=== PATIENT | female | born 1990 | race Caucasian/White ===

== ENCOUNTER 2017-05-13 08:04 | Inpatient (IN) | payer BC ==
[~2017-05-13] VITALS: Ht 162.6 cm; Wt 78.8 kg
--- NOTE | ~2017-05-13 | OR ---
PATIENT'S NAME: IMANI MOURA [facility] AGE: 27 Y [address] ROOM: [place] [address] LOCATION: GOBS ADMIT DATE: 05/13/2017 OR/Procedure Report DISCHARGE DATE: FAMILY PHYSICIAN: Sergey Ann MD ATTENDING PHYSICIAN: Erika Carlton SURGEON: Erika Carlton MD MONORAIL CRANE OPERATOR: DATE OF PROCEDURE: 05/13/2017 This is a 27-year-old 2, para 1-0-0-1, who presents at 40 weeks gestation for labor induction. She is 2 cm, 50%, -2 station, posterior. Cytotec 25 mcg was placed followed by Pitocin 4 hours later. Pitocin reached a maximum of 11 milliunits per minute. She reached 3 cm dilation and had 1 dose of IV fentanyl and then a labor epidural. heart tones were reassuring throughout. She progressed on to complete quickly and pushed just through 2 contractions. She delivered in the EMELIA position. Shoulders and body are easily delivered. Baby girl was placed on maternal abdomen. Baby girl weighs 9 pounds and 5 ounces. Her cord was doubly clamped and cut. A three-vessel cord was noted. Placenta was delivered spontaneously intact. Cervix and vagina are intact. Perineum and periurethral regions are intact. Mother and daughter are doing well in recovery. She is Rh negative. MD DANIEL NOVOAP/dontael /[id number] d: 05/14/17 0007 t: 05/16/17 0139, OPERATIVE SUMMARY
[~2017-05-13 08:04] MED LIST: FERROUS SULFATE PO; PRENATAL 1+1)(P1 TAB PO; TYLENOL EXTRA500 MG PO
[2017-05-13 09:32] LABS: BASOPHIL % 0.2 %; EOSINOPHIL # 0.1 K/uL (0.0-0.5); EOSINOPHIL % 0.6 %; HEMATOCRIT 35.6 % (33.0-46.0); HEMOGLOBIN 12.5 g/dL (11.0-15.0); IMMATURE GRANULOCYTE # 0.2 K/uL (0.0-0.3); IMMATURE GRANULOCYTE % 1.2 %; LYMPHOCYTE # 2.6 K/uL (0.8-4.0); MCH 31.2 pg (27.0-34.0); MCHC 35.1 gm/dL (32.0-36.5); MCV 88.8 fl (83.0-98.0); MONOCYTE # 1.1 K/uL (0.0-1.0); MPV 11.9 fl (9.4-12.4); NEUTROPHIL # (ANC) 9.8 K/uL (1.8-7.8); NRBC % 0 /100WBC (0-0.00); PLATELET COUNT 207 K/uL (150-450); RBC 4.01 M/uL (3.50-5.00); RDW-CV 13.4 % (11.9-14.6); WBC 13.8 K/uL (4.0-11.0)
[2017-05-14 05:16] LABS: BASOPHIL % 0.2 %; EOSINOPHIL # 0.1 K/uL (0.0-0.5); EOSINOPHIL % 0.6 %; HEMOGLOBIN 11.6 g/dL (11.0-15.0); IMMATURE GRANULOCYTE # 0.2 K/uL (0.0-0.3); IMMATURE GRANULOCYTE % 0.9 %; LYMPHOCYTE # 3.3 K/uL (0.8-4.0); LYMPHOCYTE % 17.9 %; MCH 31.6 pg (27.0-34.0); MCHC 35.2 gm/dL (32.0-36.5); MCV 89.9 fl (83.0-98.0); MONOCYTE # 1.4 K/uL (0.0-1.0); MONOCYTE % 7.3 %; MPV 11.1 fl (9.4-12.4); NEUTROPHIL # (ANC) 13.5 K/uL (1.8-7.8); NEUTROPHIL % 73.1 %; NRBC % 0 /100WBC (0-0.00); PLATELET COUNT 211 K/uL (150-450); RBC 3.67 M/uL (3.50-5.00); RDW-CV 13.4 % (11.9-14.6)
[2017-05-14 05:19] LABS: WBC 18.5 K/uL (4.0-11.0)
--- NOTE | 2017-05-14 05:46 | NUR ---
05/14/17 0540: VITALS STABLE. VOIDING WELL. MOTRIN LAST AT 0515, TYLENOL LAST AT 0230. FUNDUS FIRM AND MIDLINE.
--- NOTE | 2017-05-14 16:33 | NUR ---
Last VS: T:98.3 P:78 R: 14 BP: 111/63 Pain rating: . Last pain med: motrin at 1340. Medicated at: Effective: Breasts: , Nipples: Fundus: firm and 1 finger down Lochia: small flow Epis/Perineum: bottom o.k. Voiding well: yes Significant event: tylenol at 0720, percocet at 1202 and motrin at 1340. patient took YellowBrck this a.m. lots and lots of visitors today.
--- NOTE | 2017-05-15 05:07 | NUR ---
Last VS: T:98.0 P:76 R: 16 BP: 115/64 Pain ratin Last pain med: Percocet Medicated at: 0135 Effective: Yes Breasts: SOFT Nipples: ERRECT Fundus: FIRM/DOWN 2 Lochia: RUBRA Epis/Perineum: TENDER Voiding well: YES Significant event: V/S STABLE. VOIDING WITHOUT DIFFICULTY. BREAST FEEDS WITHOUT DIFFICULTY. PLAN FOR DISMISSAL TODAY
[2017-05-15] MEDS ORDERED: PERCOCET 5-3251 EACH PO (09:32)
[2017-05-15] MEDS ORDERED: MOTRIN800 MG PO (09:32)
== END 2017-05-15 10:25 | disposition disaster alternative care site (69) | DRG 775 ==
LOC: GOBM 08:04 → GOBS 08:04 → GOBM 08:05 → GOBS 08:05
PROVIDERS: ADMIT Obstetrics & Gynecology
PROC: 3E033VJ Introduction of Other Hormone into Peripheral Vein, Percutaneous Approach (ICD-10-PCS; principal; 2017-05-13)
PROC: 10907ZC Drainage of Amniotic Fluid, Therapeutic from Products of Conception, Via Natural or Artificial Opening (ICD-10-PCS; principal; 2017-05-13)
PROC: 10E0XZZ Delivery of Products of Conception, External Approach (ICD-10-PCS; principal; 2017-05-13)
PROC: 3E0P7GC Introduction of Other Therapeutic Substance into Female Reproductive, Via Natural or Artificial Opening (ICD-10-PCS; principal; 2017-05-13)
DX: O48.0 Post-term pregnancy (principal); Z23 Encounter for immunization; Z3A.40 40 weeks gestation of pregnancy; Z37.0 Single live birth
CPT/HCPCS: G0008; J2001; J2590; J3010; J7120